=== PATIENT | male | born 2000 | race African-American/Black ===

== ENCOUNTER 2022-10-31 22:27 | Emergency (ER) | payer OTHER ==
[2022-10-31] MEDS ORDERED: KETOROLAC TROMETHAMINE 60 MG/2 ML VIAL IM ONE (22:40)
[2022-10-31] MEDS ORDERED: KETOROLAC TROMETHAMINE 60 MG/2 ML VIAL ONE (22:43)
[2022-10-31 22:49] VITALS: BP 136/99; PULSE 67; RESP 18; TEMP 98.8; BMI 57.4
[2022-10-31] MEDS ORDERED: NAPROXEN 500 MG TABLET PO ONE (22:55)
[2022-10-31] MEDS ORDERED: NAPROXEN 500 MG TABLET ONE (22:57)
[2022-10-31 23:10] LABS: HEMATOCRIT 37.1 % (35.4-49); HEMOGLOBIN 12.3 G/dL (11.7-16.9); MCH 25.4 pg (25.7-33.7); MCHC 33.1 g/dl (32.0-35.9); MEAN CELL VOLUME 76.6 fl (80-96); MEAN PLT VOLUME 7.1 fl (7.5-11.1); PLATELET COUNT 363.9 10^3/uL (134-434); RBC 4.84 10^6/uL (4.00-5.60); RDW 17.1 % (11.9-15.9); WHITE BLOOD COUNT 10.7 10^3/uL (4.0-10.8)
[2022-10-31 23:17] LABS: PLATELET ESTIMATE ADEQUATE
[2022-10-31 23:25] LABS: BILIRUBIN,TOTAL 0.2 mg/dl (0.2-1); BLOOD UREA NITROGEN 11.4 mg/dl (7-18); CALCIUM 9.1 mg/dl (8.5-10.1); CREATININE 0.8 mg/dl (0.6-1.3); POTASSIUM 3.9 mmol/L (3.5-5.1); SGOT/AST 16.9 U/L (15-37); SGPT/ALT 22.2 U/L (7-52); TOT PROT 6.7 g/dl (6.4-8.2)
== END 2022-10-31 23:36 | disposition home or self-care (01) ==
LOC: FER 22:27
DX: M79.10 Myalgia, unspecified site (principal)
CPT/HCPCS: 36415; 80053; 85027; 99283-25